=== PATIENT | male | born 1990 | race Caucasian/White ===

== ENCOUNTER 2017-07-03 02:32 | Emergency (ER) | payer MEDICAID ==
[2017-07-03 02:42] VITALS: BP 160/81
[2017-07-03] MEDS ORDERED: Morphine 10 MG/ML Syringe IM ONE (02:48)
[2017-07-03] MEDS ORDERED: Cyclobenzaprine 10 MG Tab PO ONE (02:50)
[2017-07-03] MEDS ORDERED: Ketorolac 10 MG Tab PO ONE (02:50)
--- NOTE | 2017-07-03 04:34 | ER ---
DATE SEEN: 07/03/2017 CHIEF COMPLAINT: Back pain. HISTORY OF PRESENT ILLNESS: This is a 26-year-old male with sudden onset of back pain earlier today. He was eating at a local restaurant, pitched for a saucer, and felt sudden onset of pain in the lower back with no radiation, almost dropped him to the ground. He has tried rubbing muscle relaxant cream. He has tried some Tylenol from [employer] with no improvement. REVIEW OF SYSTEMS: No urinary symptoms, no weakness of the legs, no fever. ALLERGIES: None. PHYSICAL EXAMINATION: VITAL SIGNS: He is a morbidly obese male with a blood pressure 160/81, temperature 98.1. LOW BACK: No obvious swelling or deformity. There is tenderness in the sacral spine in the paraspinal muscles around that region. Gait: Normal gait and station. Straight leg raising test negative. NEUROLOGIC: Brisk and symmetric deep tendon reflexes. No weakness or focal findings. LABORATORY DATA: None. IMPRESSION: Lumbar sprain. PLAN: Morphine 10 mg IM. I sent him home on ketorolac and Flexeril. /[id number] TN/MODL
== END 2017-07-03 03:00 | disposition home or self-care (01) ==
LOC: FB.ED 02:32
DX: S33.5XXA Sprain of ligaments of lumbar spine, initial encounter (principal); X50.0XXA Overexertion from strenuous movement or load, initial encounter
CPT/HCPCS: 96372; 99282; A9270; J2270

== ENCOUNTER 2017-09-16 03:48 | Emergency (ER) | payer OTHER, MEDICAID ==
[2017-09-16] MEDS ORDERED: Ketorolac 60 MG/2 ML SDV IM ONE (04:06)
[2017-09-16] MEDS ORDERED: Acetaminophen/Codeine 300-30 MG Tab PO ONE (04:17)
[2017-09-16 05:42] VITALS: BP 147/70
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
== END 2017-09-16 05:15 | disposition home or self-care (01) ==
LOC: FB.ED 03:48
DX: M25.512 Pain in left shoulder (principal); R10.9 Unspecified abdominal pain
CPT/HCPCS: 96372; 99283; A9270; J1885

== ENCOUNTER 2018-01-18 02:47 | Emergency (ER) | payer MEDICAID ==
--- NOTE | 2018-01-18 04:08 | ER ---
DATE SEEN: 01/18/2018 CHIEF COMPLAINT: Shoulder pain. HISTORY OF PRESENT ILLNESS: This is a 27-year-old male with shoulder pain for 3 days with no trauma. Worse when he tries to raise the arm above the shoulder level, moderate in intensity, nothing is helping. PAST MEDICAL HISTORY: Obesity, hypertension, depression. SOCIAL HISTORY: Noncontributory. REVIEW OF SYSTEMS: No chest pain or shortness of breath. PHYSICAL EXAMINATION: VITAL SIGNS: Blood pressure 157/87, temperature 98.1. GENERAL: He is not in distress. EXTREMITIES: Right shoulder, no obvious signs of trauma, tenderness anteriorly, and around the AC joint. Normal strength. Full active range of motion, passive range of motion and a positive impingement sign. DIAGNOSTIC DATA: X-ray was negative. IMPRESSION: Rotator cuff tendinitis, right. PLAN: Toradol 10 mg t.i.d. p.r.n. Rest, ice to the area. FOLLOWUP: I advised him to follow up on Sunday. Consider physical therapy. Time seen was 03:45 a.m. /[id number] LYLE/VINCENZO
[2018-01-18 04:42] VITALS: BP 141/77
--- NOTE | 2018-01-18 11:08 | CR ---
INDICATION: Pain. No history of trauma. RIGHT SHOULDER: Three views of the right shoulder were obtained 01/18/2018 - no comparisons. A fracture, dislocation, or other significant bone or joint abnormality was not identified. If symptoms persist, examination such as MRI may be helpful for further evaluation. JULIA
== END 2018-01-18 04:02 | disposition home or self-care (01) ==
LOC: FB.ED 02:47
DX: M75.101 Unspecified rotator cuff tear or rupture of right shoulder, not specified as traumatic (principal); E66.9 Obesity, unspecified; I10 Essential (primary) hypertension
CPT/HCPCS: 73030-RT; 99283

== ENCOUNTER 2018-03-26 07:49 | Emergency (ER) | payer MEDICAID ==
[2018-03-26 08:00] VITALS: BP 152/60
[2018-03-26] MEDS ORDERED: Acetaminophen 325 MG Tab PO ONE (08:12)
--- NOTE | 2018-03-26 08:16 | EDM.PDOC ---
ED HPI GENERAL MEDICAL PROBLEM - General Chief Complaint: Allergic Reaction Stated Complaint: BEE BITE Time Seen by Provider: 03/26/18 07:56 Source of Information: Reports: Patient History Limitations: Reports: No Limitations - History of Present Illness INITIAL COMMENTS - FREE TEXT/NARRATIVE: 27 y.o.w.stacy came to the ed after he woke up this am with a rash at his left ant chest wall.No F/C no N/V or any other acute medical issues. BP: 152/60 RR 18 Pulse 89 O2 sat 98% on RA Temp 36.4 Onset Date: 03/25/18 Onset Time: 10:00 Duration: Day(s):, Getting Worse Location: Reports: Chest (wall) Quality: Reports: Burning, Dull Severity: Moderate Improves with: Reports: Cold Therapy Worsens with: Reports: Movement Context: Reports: Other (bit by a bug) Associated Symptoms: Reports: No Other Symptoms, Other (H/O asthma) L lat chest/rib Pain Score (Numeric/FACES): 0 - Related Data Allergies Allergy/AdvReac Type Severity Reaction Status Date / Time No Known Allergies Allergy Verified 03/26/18 08:01 Home Meds: Home Meds FLUoxetine [PROzac] 30 mg PO BEDTIME 10/07/16 [History] Lisinopril 10 mg PO DAILY 07/03/17 [History] Montelukast [Singulair] 10 mg PO BEDTIME 01/18/18 [History] buPROPion [Wellbutrin] 75 mg DAILY 01/18/18 [History] hydrOXYzine HCl [hydrOXYzine] 50 mg BID PRN 01/18/18 [History] Albuterol [Proventil HFA] 2 puff INH Q4H PRN 03/26/18 [History] Doxycycline [Vibramycin] 100 mg PO BID #20 cap 03/26/18 [Rx] Past Medical History HEENT History: Reports: Impaired Vision Cardiovascular History: Reports: High Cholesterol, Hypertension Respiratory History: Reports: Asthma, Bronchitis, Recurrent, Sleep Apnea Other Respiratory History: uses CPAP Gastrointestinal History: Reports: GERD Genitourinary History: Reports: None Musculoskeletal History: Reports: Fracture, Neck Pain, Chronic, Other (See Below ) Other Musculoskeletal History: L FOOT FRACTURE, hx R boxer's fx x 3, DJD of neck Neurological History: Reports: Migraines Psychiatric History: Reports: ADHD, Anxiety, Bipolar, Depression, Other (See Below) Other Psychiatric History: anger management problems Endocrine/Metabolic History: Reports: Obesity/BMI 30+ Hematologic History: Reports: None Immunologic History: Reports: None Oncologic (Cancer) History: Reports: None Dermatologic History: Reports: None - Infectious Disease History Infectious Disease History: Reports: Chicken Pox - Past Surgical History Head Surgeries/Procedures: Reports: None HEENT Surgical History: Reports: Myringotomy w Tube(s), Oral Surgery Other HEENT Surgeries/Procedures: tubes in L ear GI Surgical History: Reports: None Male Surgical History: Reports: None Endocrine Surgical History: Reports: None Neurological Surgical History: Reports: None Social & Family History - Family History Family Medical History: Noncontributory - Caffeine Use Caffeine Use: Reports: Coffee, Energy Drinks, Soda, Tea ED ROS ALLERGIC REACTION - Review of Systems Review Of Systems: See Below Constitutional: Reports: No Symptoms HEENT: Reports: No Symptoms Respiratory: Reports: No Symptoms Cardiovascular: Reports: No Symptoms Endocrine: Reports: No Symptoms GI/Abdominal: Reports: No Symptoms : Reports: No Symptoms Musculoskeletal: Reports: No Symptoms Skin: Reports: Rash, Erythema (left ant chest wall.) Neurological: Reports: No Symptoms Psychiatric: Reports: No Symptoms Hematologic/Lymphatic: Reports: No Symptoms Immunologic: Reports: No Symptoms ED EXAM GENERAL NO PERIP PULSE - Physical Exam Exam: See Below Exam Limited By: No Limitations General Appearance: Alert, WD/WN, Mild Distress, Obese (morbid) Eye Exam: Bilateral Eye: Normal Inspection Ears: Normal External Exam, Normal Canal Nose: Normal Inspection, Normal Mucosa, No Blood Throat/Mouth: Normal Inspection, Normal Lips, Normal Gums, Normal Voice, No Airway Compromise Head: Atraumatic, Normocephalic Neck: Normal Inspection, Supple, Non-Tender, Full Range of Motion Respiratory/Chest: No Respiratory Distress, Lungs Clear, Normal Breath Sounds, No Accessory Muscle Use, Chest Non-Tender Cardiovascular: Normal Peripheral Pulses, Regular Rate, Rhythm, No Edema, No Gallop, No JVD, No Murmur, No Rub GI/Abdominal: Normal Bowel Sounds, Soft, Non-Tender, No Organomegaly, No Distention, No Abnormal Bruit, No Mass, Pelvis Stable (Male) Exam: Deferred Rectal (Males) Exam: Deferred Back Exam: Normal Inspection, Full Range of Motion Extremities: Normal Inspection, Normal Range of Motion, Non-Tender, No Pedal Edema Neurological: Alert, Oriented, CN II-XII Intact, Normal Cognition, Normal Gait, Normal Reflexes Psychiatric: Normal Affect, Normal Mood Skin Exam: Warm, Dry, Erythema (left ant chest wall), Rash Lymphatic: No Adenopathy Course - Vital Signs Text/Narrative:: 27 y.o.w.m came to the ed after he woke up this am with a rash at his left ant chest wall.No F/C no N/V or any other acute medical issues. BP: 152/60 RR 18 Pulse 89 O2 sat 98% on RA Temp 36.4 PE: 27 y.o.w.m came to the ed after he was bit by a bug into his left chest wall , port of entry above his left nipple. No stinger seen. Impression: Insect bite with superficial cellulites left ant chest wall. Tx: Doxycycline as per prescription, Tylenol, ICE Reexam: Improved Plan: D/C with instructions Last Recorded V/S: Last Vital Signs Temp 36.7 C 03/26/18 07:56 Pulse 89 03/26/18 07:56 Resp 20 03/26/18 07:56 BP 152/60 H 03/26/18 07:56 Pulse Ox 98 03/26/18 07:56 - Orders/Labs/Meds Meds: Medications Discontinued Medications Generic Name Dose Route Start Last Admin Trade Name Carlitosq PRN Reason Stop Dose Admin Acetaminophen 650 mg 03/26/18 08:12 03/26/18 08:41 Tylenol PO 03/26/18 08:13 650 mg NOW ONE Administration Departure - Departure Time of Disposition: 08:13 Disposition: Home, Self-Care 01 Condition: Good Clinical Impression: Bug bite with infection Qualifiers: Encounter type: initial encounter Qualified Code(s): W57.XXXA - Bitten or stung by nonvenomous insect and other nonvenomous arthropods, initial encounter - Discharge Information Prescriptions: Doxycycline [Vibramycin] 100 mg PO BID #20 cap Instructions: Cellulitis, Adult, Vaes-yd-Angh, Bee, Wasp, or Hornet Sting, Adult Referrals: Prashant Crisostomo MD [Primary Care Provider] - Forms: ED Department Discharge Additional Instructions: Please apply ice to the affected area, please take the Abx as recommended, tylenol for pain, ice to the affected area as needed. Please f/u, come back if your symptoms get worse acutely.
== END 2018-03-26 08:37 | disposition home or self-care (01) ==
LOC: FB.ED 07:49
DX: S20.362A Insect bite (nonvenomous) of left front wall of thorax, initial encounter (principal); L03.313 Cellulitis of chest wall; E66.9 Obesity, unspecified; I10 Essential (primary) hypertension; Z79.899 Other long term (current) drug therapy; W57.XXXA Bitten or stung by nonvenomous insect and other nonvenomous arthropods, initial encounter
CPT/HCPCS: 99281; A9270

== ENCOUNTER 2018-04-14 19:00 | Emergency (ER) | payer OTHER, MEDICAID ==
[2018-04-14 23:55] VITALS: BP 153/72
--- NOTE | 2018-04-15 10:51 | ER ---
DATE SEEN: 04/14/2018 TIME SEEN: The patient was seen at 1427 hours. 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 He has moderate 8/10 pain and discomfort of his right shoulder. He has used ibuprofen at 10 o'clock. He has decreased range of motion, no compromised sensation. CURRENT MEDICATIONS: He takes: 1. Lisinopril 10 mg. 2. Albuterol p.r.n. shortness of breath. ALLERGIES: None. REVIEW OF SYSTEMS: Negative, except for extensive morbid obesity. PHYSICAL EXAMINATION: VITAL SIGNS: Blood pressure 159/102, repeat blood pressure 153/72; heart rate 81; respirations 18; oxygen saturation 97%; and temperature 36.8 degrees centigrade. CONSTITUTIONAL: The patient is a massively obese man with marked fatty overhang with mild discomfort. He has very large arms. HEENT: PERRLA intact. Pharynx is without abnormality. LUNGS: Clear, without rales, rhonchi, or wheezes. CHEST: No chest wall pain. HEART: S1 and S2. No irregular rate or rhythm. No tachycardia. ABDOMEN: Soft. No guarding. No hepatomegaly. It is difficult to palpate his abdomen. EXTREMITIES: Without edema. Right upper extremity: moderate tenderness of the AC joint, clavicle: mild tenderness, distal third, with no crepitus or step-off noted. Anterior long head of biceps tendon groove is mildly tender. He can abduct to 90 degrees and adduct appropriately. Internal and external rotation is good, but on the end range of motion has mild discomfort. RADIOGRAPHIC DATA: X-ray does not reveal a fracture and does not reveal an AC separation. However, Radiology may need to read it for evaluating AC separation. Because of his shoulder pain I do not perform AC evaluation with and without weights to accentuate any AC separation. ASSESSMENT: Right shoulder trauma, soft tissue injury, and ligamentous and tendons trauma with AC separation. PLAN: Follow up with Orthopedics in 3 to 5 days. A work capability sheet is filled out for his work at [employer]. Plain Tylenol 1000 mg and ibuprofen 600 mg, both taken together every 6 hours for pain. Use ice. Gradually progress or increase the use of his arm. DIAGNOSIS: Right shoulder contusion with ligamentous strain, no fracture, possible acromioclavicular separation. /[id number] SIOBHAN/VINCENZO DUMONT
--- NOTE | 2018-04-15 14:50 | CR ---
INDICATION: Trauma to right shoulder, fell, 446 pounds weight. RIGHT CLAVICLE: Two frontal views of the clavicle were obtained and revealed no evidence of a fracture, dislocation, or other definite bone or joint abnormality. Adjacent ribs appear to be intact. MTDD
--- NOTE | 2018-04-15 14:51 | CR ---
INDICATION: Fall yesterday. RIGHT SHOULDER: Three views of the right shoulder were obtained 04/14/2018. No comparisons were available. A fracture, dislocation, or other definite bone or joint abnormality was not identified. Adjacent ribs appear to be intact. MTDD
== END 2018-04-14 21:30 | disposition home or self-care (01) ==
LOC: FB.ED 19:00
DX: S40.011A Contusion of right shoulder, initial encounter (principal); W01.0XXA Fall on same level from slipping, tripping and stumbling without subsequent striking against object, initial encounter
CPT/HCPCS: 73000-RT; 73030-RT; 99000; 99283

== ENCOUNTER 2018-05-14 14:12 | Emergency (ER) | payer MEDICAID, OTHER ==
[2018-05-14] MEDS ORDERED: Sodium Chloride 0.9% 10 ML Syringe FLUSH PRN (14:57)
[2018-05-14] MEDS ORDERED: Pantoprazole 40 MG Vial IVPUSH ONE (14:58)
[2018-05-14] MEDS ORDERED: Ondansetron 4 MG/2 ML SDV IVPUSH ONE (14:58)
[2018-05-14] MEDS ORDERED: HYDROmorphone 2 MG/ML SDV IVPUSH ONE (14:58)
[2018-05-14] MEDS ORDERED: Sodium Chloride 0.9% 1,000 ML IV SCH (15:00)
--- NOTE | 2018-05-14 15:03 | EDM.PDOC ---
ED HPI GENERAL MEDICAL PROBLEM - General Chief Complaint: Abdominal Pain Stated Complaint: STOMACH PAIN Time Seen by Provider: 05/14/18 14:58 Source of Information: Reports: Patient History Limitations: Reports: No Limitations - History of Present Illness INITIAL COMMENTS - FREE TEXT/NARRATIVE: Presents with generalized abdominal pain and nausea x 2 days. No prior h/o abdominal surgeries. Patient believes he may be constipated, doesn't remember when his last BM was. Onset Date: 05/13/18 Location: Reports: Abdomen Severity: Moderate Associated Symptoms: Reports: Nausea/Vomiting - Related Data Allergies Allergy/AdvReac Type Severity Reaction Status Date / Time No Known Allergies Allergy Verified 04/14/18 19:21 Home Meds: Home Meds Lisinopril 10 mg PO DAILY 07/03/17 [History] Albuterol [Proventil HFA] 2 puff INH Q4H PRN 03/26/18 [History] FLUoxetine [PROzac] 10 mg PO DAILY 05/14/18 [History] Loratadine 10 mg PO DAILY 05/14/18 [History] Montelukast [Singulair] 10 mg PO DAILY 05/14/18 [History] Topiramate 100 mg PO DAILY 05/14/18 [History] buPROPion [Wellbutrin] 75 mg PO BEDTIME 05/14/18 [History] Past Medical History HEENT History: Reports: Impaired Vision Cardiovascular History: Reports: High Cholesterol, Hypertension Respiratory History: Reports: Asthma, Bronchitis, Recurrent, Sleep Apnea Other Respiratory History: uses CPAP Gastrointestinal History: Reports: GERD Genitourinary History: Reports: None Musculoskeletal History: Reports: Fracture, Neck Pain, Chronic, Other (See Below ) Other Musculoskeletal History: L FOOT FRACTURE, hx R boxer's fx x 3, DJD of neck Neurological History: Reports: Migraines Psychiatric History: Reports: ADHD, Anxiety, Bipolar, Depression, Other (See Below) Other Psychiatric History: anger management problems Endocrine/Metabolic History: Reports: Obesity/BMI 30+ Hematologic History: Reports: None Immunologic History: Reports: None Oncologic (Cancer) History: Reports: None Dermatologic History: Reports: None - Infectious Disease History Infectious Disease History: Reports: Chicken Pox - Past Surgical History Head Surgeries/Procedures: Reports: None HEENT Surgical History: Reports: Myringotomy w Tube(s), Oral Surgery Other HEENT Surgeries/Procedures: tubes in L ear GI Surgical History: Reports: None Male Surgical History: Reports: None Endocrine Surgical History: Reports: None Neurological Surgical History: Reports: None Social & Family History - Family History Family Medical History: Noncontributory - Tobacco Use Smoking Status *Q: Heavy Tobacco Smoker Years of Tobacco use: 8 Packs/Tins Daily: 1.5 Second Hand Smoke Exposure: Yes - Caffeine Use Caffeine Use: Reports: Coffee - Recreational Drug Use Recreational Drug Use: No ED ROS GENERAL - Review of Systems Review Of Systems: See Below Constitutional: Reports: No Symptoms HEENT: Reports: No Symptoms Respiratory: Reports: No Symptoms Cardiovascular: Reports: No Symptoms Endocrine: Reports: No Symptoms GI/Abdominal: Reports: Abdominal Pain, Nausea. Denies: Vomiting : Reports: No Symptoms Musculoskeletal: Reports: No Symptoms Skin: Reports: No Symptoms Neurological: Reports: No Symptoms Psychiatric: Reports: No Symptoms Hematologic/Lymphatic: Reports: No Symptoms Immunologic: Reports: No Symptoms ED EXAM, GI/ABD - Physical Exam Exam: See Below Exam Limited By: No Limitations General Appearance: Alert, WD/WN, No Apparent Distress Ears: Normal External Exam Nose: Normal Inspection Throat/Mouth: No Airway Compromise Head: Atraumatic, Normocephalic Neck: Full Range of Motion Respiratory/Chest: No Respiratory Distress, Lungs Clear, Normal Breath Sounds Cardiovascular: Regular Rate, Rhythm, No JVD, No Murmur, No Rub GI/Abdominal Exam: Normal Bowel Sounds, Soft, Guarding, Tender (moderate generalized tenderness) Back Exam: Full Range of Motion Extremities: Normal Range of Motion Neurological: Alert, Normal Cognition Skin Exam: Warm, Dry, Intact Course - Vital Signs Last Recorded V/S: Last Vital Signs Temp 37.0 C 05/14/18 14:27 Pulse 95 05/14/18 15:33 Resp 15 05/14/18 15:33 BP 132/79 05/14/18 15:33 Pulse Ox 97 05/14/18 15:33 - Orders/Labs/Meds Orders: Active Orders 24 hr Category Date Time Status UA W/MICROSCOPIC [URIN] Stat Lab 05/14/18 16:54 Ordered Sodium Chloride 0.9% [Normal Saline] 1,000 ml Med 05/14/18 15:00 Active IV ASDIRECTED Sodium Chloride 0.9% [Saline Flush] Med 05/14/18 14:57 Active 10 ml FLUSH ASDIRECTED PRN Saline Lock Insert [OM.PC] Routine Oth 05/14/18 14:57 Ordered Medication Orders Sodium Chloride (Normal Saline) 1,000 mls @ 150 mls/hr IV ASDIRECTED ALICIA Last Admin: 05/14/18 15:27 Dose: 150 mls/hr Sodium Chloride (Saline Flush) 10 ml FLUSH ASDIRECTED PRN PRN Reason: Keep Vein Open Labs: Laboratory Tests 05/14/18 05/14/18 05/14/18 Range/Units 15:23 15:23 15:23 WBC 19.0 H (4.5-12.0) X10-3/uL RBC 5.42 (4.30-5.75) x10(6)uL Hgb 12.8 (11.5-15.5) g/dL Hct 39.9 (30.0-51.3) % MCV 73.7 L (80-96) fL MCH 23.7 L (27.7-33.6) pg MCHC 32.1 L (32.2-35.4) g/dL RDW 15.5 (11.5-15.5) % Plt Count 340 (125-369) X10(3)uL MPV 8.3 (7.4-10.4) fL Add Manual Diff Yes Neutrophils % (Manual) 74 (46-82) % Band Neutrophils % 4 (0-6) % Lymphocytes % (Manual) 13 (13-37) % Monocytes % (Manual) 9 (4-12) % Anisocytosis Moderate H Microcytosis Many H PT 10.6 (8.7-11.1) INR 1.09 (0.89-1.13) Sodium 136 (135-145) mmol/L Potassium 3.6 (3.5-5.3) mmol/L Chloride 100 (100-110) mmol/L Carbon Dioxide 26 (21-32) mmol/L BUN 10 (7-18) mg/dL Creatinine 0.9 (0.70-1.30) mg/dL Est Cr Clr Drug Dosing 130.15 mL/min Estimated GFR (MDRD) > 60 (>60) BUN/Creatinine Ratio 11.1 (9-20) Glucose 97 (80-116) mg/dL Calcium 9.3 (8.6-10.2) mg/dL Total Bilirubin 1.0 (0.1-1.3) mg/dL AST 12 (5-25) IU/L ALT 26 (12-36) U/L Alkaline Phosphatase 69 (56-112) IU/L Total Protein 8.2 H (6.0-8.0) g/dL Albumin 3.2 L (3.5-5.2) g/dL Globulin 5.0 g/dL Albumin/Globulin Ratio 0.6 Amylase 27 (25-115) U/L Urine Color (YELLOW) Urine Appearance (CLEAR) Urine pH (5.0-6.5) Ur Specific [place] (1.010-1.025) Urine Protein (NEGATIVE) mg/dL Urine Glucose (UA) (NEGATIVE) mg/dL Urine Ketones (NEGATIVE) mg/dL Urine Occult Blood (NEGATIVE) Urine Nitrite (NEGATIVE) Urine Bilirubin (NEGATIVE) Urine Urobilinogen (NEGATIVE) mg/dL Ur Leukocyte Esterase (NEGATIVE) Urine RBC (0) Urine WBC (0) Ur Squamous Epith Cells (NS,R,O) Urine Bacteria (NS) Urine Mucus (NS) 05/14/18 Range/Units 16:54 WBC (4.5-12.0) X10-3/uL RBC (4.30-5.75) x10(6)uL Hgb (11.5-15.5) g/dL Hct (30.0-51.3) % MCV (80-96) fL MCH (27.7-33.6) pg MCHC (32.2-35.4) g/dL RDW (11.5-15.5) % Plt Count (125-369) X10(3)uL MPV (7.4-10.4) fL Add Manual Diff Neutrophils % (Manual) (46-82) % Band Neutrophils % (0-6) % Lymphocytes % (Manual) (13-37) % Monocytes % (Manual) (4-12) % Anisocytosis Microcytosis PT (8.7-11.1) INR (0.89-1.13) Sodium (135-145) mmol/L Potassium (3.5-5.3) mmol/L Chloride (100-110) mmol/L Carbon Dioxide (21-32) mmol/L BUN (7-18) mg/dL Creatinine (0.70-1.30) mg/dL Est Cr Clr Drug Dosing mL/min Estimated GFR (MDRD) (>60) BUN/Creatinine Ratio (9-20) Glucose (80-116) mg/dL Calcium (8.6-10.2) mg/dL Total Bilirubin (0.1-1.3) mg/dL AST (5-25) IU/L ALT (12-36) U/L Alkaline Phosphatase (56-112) IU/L Total Protein (6.0-8.0) g/dL Albumin (3.5-5.2) g/dL Globulin g/dL Albumin/Globulin Ratio Amylase (25-115) U/L Urine Color [place] (YELLOW) Urine Appearance Slightly cloudy (CLEAR) Urine pH 5.0 (5.0-6.5) Ur Specific [place] 1.015 (1.010-1.025) Urine Protein Trace (NEGATIVE) mg/dL Urine Glucose (UA) Normal (NEGATIVE) mg/dL Urine Ketones Negative (NEGATIVE) mg/dL Urine Occult Blood Trace (NEGATIVE) Urine Nitrite Negative (NEGATIVE) Urine Bilirubin Small H (NEGATIVE) Urine Urobilinogen Normal (NEGATIVE) mg/dL Ur Leukocyte Esterase Negative (NEGATIVE) Urine RBC 0-5 (0) Urine WBC 0-5 (0) Ur Squamous Epith Cells Moderate H (NS,R,O) Urine Bacteria Moderate H (NS) Urine Mucus Few H (NS) Meds: Medications Generic Name Dose Route Start Last Admin Trade Name Freq PRN Reason Stop Dose Admin Sodium Chloride 1,000 mls @ 150 mls/hr 05/14/18 15:00 05/14/18 15:27 Normal Saline IV 150 mls/hr ASDIRECTED ALICIA Administration Sodium Chloride 10 ml 05/14/18 14:57 Saline Flush FLUSH ASDIRECTED PRN Keep Vein Open Discontinued Medications Generic Name Dose Route Start Last Admin Trade Name Freq PRN Reason Stop Dose Admin Hydromorphone HCl 1 mg 05/14/18 14:58 05/14/18 15:28 Dilaudid IVPUSH 05/14/18 14:59 1 mg ONETIME ONE Administration Piperacillin Sod/Tazobactam 50 mls @ 100 mls/hr 05/14/18 16:54 Sod 3.375 gm/ Sodium Chloride IV 05/14/18 17:23 ONETIME ONE Iopamidol 150 ml 05/14/18 16:32 05/14/18 16:37 Isovue-370 (76%) IV 05/14/18 16:33 150 ml ONETIME ONE Administration Ondansetron HCl 4 mg 05/14/18 14:58 05/14/18 15:28 Zofran IVPUSH 05/14/18 14:59 4 mg ONETIME ONE Administration Pantoprazole Sodium 40 mg 05/14/18 14:58 05/14/18 15:30 Protonix Iv IVPUSH 05/14/18 14:59 40 mg ONETIME ONE Administration - Radiology Interpretation Free Text/Narrative:: CT Abd/Pelvis w/ contrast: Findings compatible with peritonitis with possibility of either perforation of bowel and tiny amounts of free air or possibly gas forming organism infection with peritonitis. Adjacent loops of bowel are present, raising question of either diverticulitis or colitis with perforation. Distended gallbladder is noted. - Re-Assessments/Exams Free Text/Narrative Re-Assessment/Exam: 05/14/18 18:15 Pain and nausea have improved. 05/14/18 19:16 Dr. Lopez (sort operations supervisor surgeon for [facility]) recommends [facility] transfer due to morbid obesity. Dr. Hodges accepts patient for transfer to [facility] ED. Departure - Departure Time of Disposition: 19:15 Disposition: DC/Tfer to Acute Hospital 02 Condition: Fair Clinical Impression: Peritonitis, Perforation of cecum due to diverticulitis - Discharge Information *PRESCRIPTION DRUG MONITORING PROGRAM REVIEWED*: No *COPY OF PRESCRIPTION DRUG MONITORING REPORT IN PATIENT BERONICA: Not Applicable Referrals: Prashant Crisostomo MD [Primary Care Provider] - Forms: ED Department Discharge - My Orders Last 24 Hours: My Active Orders 05/14/18 14:57 Sodium Chloride 0.9% [Saline Flush] 10 ml FLUSH ASDIRECTED PRN Saline Lock Insert [OM.PC] Routine 05/14/18 15:00 Sodium Chloride 0.9% [Normal Saline] 1,000 ml IV ASDIRECTED 05/14/18 16:54 UA W/MICROSCOPIC [URIN] Stat - Assessment/Plan Last 24 Hours: My Active Orders 05/14/18 14:57 Sodium Chloride 0.9% [Saline Flush] 10 ml FLUSH ASDIRECTED PRN Saline Lock Insert [OM.PC] Routine 05/14/18 15:00 Sodium Chloride 0.9% [Normal Saline] 1,000 ml IV ASDIRECTED 05/14/18 16:54 UA W/MICROSCOPIC [URIN] Stat
[2018-05-14] MEDS ORDERED: Iopamidol 755 MG/ML 150 ML Bottle IV ONE (16:32)
[2018-05-14] MEDS ORDERED: Piperacillin/Tazobactam 3.375 GM in Sodium Chloride 0.9% 50 ML IV ONE (16:54)
--- NOTE | 2018-05-14 18:08 | CT ---
INDICATION: Pelvic pain mid to left pelvis. CT ABDOMEN AND PELVIS WITH CONTRAST: Spiral 1.25 mm axial sections were obtained through the abdomen and pelvis with 150 mL Isovue 370 at 2 mL/second with 100 second delay and revealed, in the upper middle anterior pelvis to the left and in the midline, an area of fairly intense fat stranding with a few gas bubbles interspersed, strongly suggesting peritonitis. Adjacent bowel loops are noted, and the possibility of either diverticulitis or colitis with perforation would be a consideration, possibly with gas-forming organism infection also. No definite abscess formation was seen. No gross free fluid collection was seen - no gross free air was seen extending to the anterior abdominal wall. Total exam DLP = 2,017.11 mGy-cm. No evidence of bowel obstruction was identified. The appendix was not definitely seen. The gallbladder appears to be somewhat distended - no definite calculi were seen. The gallbladder was fairly large; however, this is a large patient, and it may be physiologic for this specific patient. If gallbladder disease is suspected clinically, gallbladder ultrasound is recommended for further evaluation. The lower lung ulloa and pleural spaces visualized showed no evidence of active infiltrate or effusion. The liver, spleen, pancreas, adrenals, and kidneys appeared normal. No retroperitoneal masses were seen. No organomegaly, mass lesions, or free fluid collections were identified in the abdomen or pelvis. The study is somewhat limited by the patients exogenous obesity, which diminishes detail. IMPRESSION: 1. Findings are compatible with peritonitis with possibility of either perforation of bowel and tiny amounts of free air in the area of peritonitis or possibly gas-forming organism infection with peritonitis, producing the bubbles of gas. Adjacent loops of bowel are present, raising question of either minimal diverticulosis with diverticulitis or colitis possibly with perforation. 2. Distended gallbladder is noted, which likely is physiologic, but cannot entirely exclude the possibility of cholecystitis with a 12 cm gallbladder. Depending upon clinical correlation, ultrasound of the gallbladder may be helpful for further evaluation. 3. CT of the abdomen and pelvis is otherwise fairly unremarkable. Report was called to Dr. Sarmiento at 1656 hours on 05/14/2018. [facility]
[2018-05-14 23:11] VITALS: BP 149/91
== END 2018-05-14 19:30 ==
LOC: FB.ED 14:12
DX: K57.20 Diverticulitis of large intestine with perforation and abscess without bleeding (principal); K21.9 Gastro-esophageal reflux disease without esophagitis; F17.210 Nicotine dependence, cigarettes, uncomplicated; Z79.899 Other long term (current) drug therapy
CPT/HCPCS: 36415; 74177; 80053; 81001; 82150; 85025; 85610; 96361; 96374; 96375; 99285; C9113; J1170; J2405; J2543; J7030; J7050; Q9967

== ENCOUNTER 2018-07-15 04:33 | Emergency (ER) | payer MEDICAID, OTHER ==
--- NOTE | 2018-07-15 06:21 | EDM.PDOC ---
ED HPI GENERAL MEDICAL PROBLEM - General Chief Complaint: Upper Extremity Injury/Pain Stated Complaint: RIGHT WRIST PAIN Time Seen by Provider: 07/15/18 06:16 Source of Information: Reports: Patient History Limitations: Reports: No Limitations - History of Present Illness INITIAL COMMENTS - FREE TEXT/NARRATIVE: Complains of right wrist pain x 1 week. Denies injury. Taking Ibuprofen w/o improvement. Patient is right hand dominant. 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 2 Pain Score (Numeric/FACES): 7 - Related Data Allergies Allergy/AdvReac Type Severity Reaction Status Date / Time No Known Allergies Allergy Verified 07/15/18 05:11 Home Meds: Home Meds Lisinopril 10 mg PO DAILY 07/03/17 [History] Albuterol [Proventil HFA] 2 puff INH Q4H PRN 03/26/18 [History] FLUoxetine [PROzac] 10 mg PO DAILY 05/14/18 [History] Loratadine 10 mg PO DAILY 05/14/18 [History] Montelukast [Singulair] 10 mg PO DAILY 05/14/18 [History] Topiramate 100 mg PO DAILY 05/14/18 [History] buPROPion [Wellbutrin] 75 mg PO BEDTIME 05/14/18 [History] Past Medical History HEENT History: Reports: Impaired Vision Cardiovascular History: Reports: High Cholesterol, Hypertension Respiratory History: Reports: Asthma, Bronchitis, Recurrent, Sleep Apnea Other Respiratory History: uses CPAP Gastrointestinal History: Reports: GERD, Other (See Below) Other Gastrointestinal History: diverticulitis Genitourinary History: Reports: None Musculoskeletal History: Reports: Fracture, Neck Pain, Chronic, Other (See Below ) Other Musculoskeletal History: L FOOT FRACTURE, hx R boxer's fx x 3, DJD of neck ,should injury Neurological History: Reports: Migraines Psychiatric History: Reports: ADHD, Anxiety, Bipolar, Depression, Other (See Below) Other Psychiatric History: anger management problems Endocrine/Metabolic History: Reports: Obesity/BMI 30+ Hematologic History: Reports: None Immunologic History: Reports: None Oncologic (Cancer) History: Reports: None Dermatologic History: Reports: None - Infectious Disease History Infectious Disease History: Reports: Chicken Pox - Past Surgical History HEENT Surgical History: Reports: Myringotomy w Tube(s), Oral Surgery Other HEENT Surgeries/Procedures: tubes in L ear GI Surgical History: Reports: None Male Surgical History: Reports: None Endocrine Surgical History: Reports: None Neurological Surgical History: Reports: None Musculoskeletal Surgical History: Reports: Other (See Below) Other Musculoskeletal Surgeries/Procedures:: back surgery Social & Family History - Family History Family Medical History: Noncontributory - Tobacco Use Smoking Status *Q: Current Every Day Smoker Years of Tobacco use: 10 Packs/Tins Daily: 3 - Caffeine Use Caffeine Use: Reports: Coffee, Energy Drinks - Recreational Drug Use Recreational Drug Use: No Review of Systems - Review of Systems Review Of Systems: ROS reveals no pertinent complaints other than HPI. ED EXAM, GENERAL - Physical Exam Exam: See Below Exam Limited By: No Limitations General Appearance: Alert, WD/WN, No Apparent Distress Ears: Normal External Exam Throat/Mouth: No Airway Compromise Head: Atraumatic, Normocephalic Neck: Full Range of Motion Respiratory/Chest: No Respiratory Distress Peripheral Pulses: 2+: Radial (R) Extremities: Normal Range of Motion, Normal Capillary Refill, Other (mild tenderness to right lateral wrist) Neurological: Alert, Normal Cognition, No Motor/Sensory Deficits Psychiatric: Normal Affect, Normal Mood Skin Exam: Warm, Dry, Intact, Normal Color, No Rash ED TRAUMA EXTREMITY PROCEDURES - Splinting Right Upper Extremity Splint Site: right wrist Pre-Procedure NV Status: Normal Post-Procedure NV Status: Normal Splint Material: Velcro Splint Design: Volar Applied & Form Fitted By: Nurse Provider Post-Splint Application NV Check: NV Status Normal, Good Position Complications: No Course - Vital Signs Last Recorded V/S: Last Vital Signs Temp 37.1 C 07/15/18 05:00 Pulse Resp 18 07/15/18 05:00 BP 132/89 07/15/18 05:00 Pulse Ox 99 07/15/18 05:00 - Orders/Labs/Meds Orders: Active Orders 24 hr Category Date Time Status Splinting [RC] ASDIRECTED Care 07/15/18 06:16 Ordered Wrist Comp Min 3V Rt [CR] Stat Exams 07/15/18 05:07 Taken - Re-Assessments/Exams Free Text/Narrative Re-Assessment/Exam: 09/17/18 06:19 Right wrist xr: NAD Departure - Departure Time of Disposition: 06:20 Disposition: Home, Self-Care 01 Condition: Good Clinical Impression: Wrist pain, acute Qualifiers: Laterality: right Qualified Code(s): M25.531 - Pain in right wrist - Discharge Information *PRESCRIPTION DRUG MONITORING PROGRAM REVIEWED*: No *COPY OF PRESCRIPTION DRUG MONITORING REPORT IN PATIENT BERONICA: Not Applicable Instructions: Wrist Splint, Adult, Musculoskeletal Pain Referrals: Prashant Crisostomo MD [Primary Care Provider] - Aníbal Sheikh DO [Physician] - Additional Instructions: Take Ibuprofen as needed. Follow up with orthopedics in 3-4 days. - My Orders Last 24 Hours: My Active Orders 07/15/18 05:07 Wrist Comp Min 3V Rt [CR] Stat 07/15/18 06:16 Splinting [RC] ASDIRECTED - Assessment/Plan Last 24 Hours: My Active Orders 07/15/18 05:07 Wrist Comp Min 3V Rt [CR] Stat 07/15/18 06:16 Splinting [RC] ASDIRECTED
[2018-07-15 06:36] VITALS: BP 133/83
== END 2018-07-15 06:32 | disposition home or self-care (01) ==
LOC: FB.ED 04:33
DX: M25.531 Pain in right wrist (principal); I10 Essential (primary) hypertension; E66.9 Obesity, unspecified; F17.210 Nicotine dependence, cigarettes, uncomplicated; Z79.899 Other long term (current) drug therapy
CPT/HCPCS: 73110-RT; 99283

== ENCOUNTER 2018-11-23 05:38 | Emergency (ER) | payer MEDICAID, OTHER ==
--- NOTE | 2018-11-23 06:15 | EDM.PDOC ---
ED HPI GENERAL MEDICAL PROBLEM - General Chief Complaint: ENT Problem Stated Complaint: EAR INFECTION Time Seen by Provider: 11/23/18 05:38 Source of Information: Reports: Patient History Limitations: Reports: No Limitations - History of Present Illness INITIAL COMMENTS - FREE TEXT/NARRATIVE: 27 y.o.w.m with a H/O HTN came to the ed because his left ear is hurting. He had an ear tube placed in his left ear and is applying cotton in his left ear to prevent drainage. He ran out of his BP meds. 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: Other (see below) (pt ran out of BP meds) right ear Pain Score (Numeric/FACES): 7 - Related Data Allergies Allergy/AdvReac Type Severity Reaction Status Date / Time No Known Allergies Allergy Verified 11/23/18 05:47 Home Meds: Home Meds Lisinopril 10 mg PO DAILY 07/03/17 [History] Albuterol [Proventil HFA] 2 puff INH Q4H PRN 03/26/18 [History] FLUoxetine [PROzac] 10 mg PO DAILY 05/14/18 [History] Loratadine 10 mg PO DAILY 05/14/18 [History] Montelukast [Singulair] 10 mg PO DAILY 05/14/18 [History] Topiramate 100 mg PO DAILY 05/14/18 [History] buPROPion [Wellbutrin] 75 mg PO BEDTIME 05/14/18 [History] Azithromycin [Zithromax] 250 mg PO DAILY #6 tab 11/23/18 [Rx] Lisinopril 10 mg PO DAILY #30 tablet 11/23/18 [Rx] Past Medical History HEENT History: Reports: Impaired Vision Cardiovascular History: Reports: High Cholesterol, Hypertension Respiratory History: Reports: Asthma, Bronchitis, Recurrent, Sleep Apnea Other Respiratory History: uses CPAP Gastrointestinal History: Reports: GERD, Other (See Below) Other Gastrointestinal History: diverticulitis Genitourinary History: Reports: None Musculoskeletal History: Reports: Arthritis, Fracture, Neck Pain, Chronic, Other (See Below) Other Musculoskeletal History: L FOOT FRACTURE, hx R boxer's fx x 3, DJD of neck , R shoulder injury Neurological History: Reports: Migraines Psychiatric History: Reports: ADHD, Anxiety, Bipolar, Depression, Other (See Below) Other Psychiatric History: anger management problems Endocrine/Metabolic History: Reports: Obesity/BMI 30+ Hematologic History: Reports: None Immunologic History: Reports: None Oncologic (Cancer) History: Reports: None Dermatologic History: Reports: None - Infectious Disease History Infectious Disease History: Reports: Chicken Pox - Past Surgical History Head Surgeries/Procedures: Reports: None HEENT Surgical History: Reports: Myringotomy w Tube(s), Oral Surgery Other HEENT Surgeries/Procedures: tubes in L ear GI Surgical History: Reports: Colonoscopy Male Surgical History: Reports: None Endocrine Surgical History: Reports: None Neurological Surgical History: Reports: None Musculoskeletal Surgical History: Reports: Other (See Below) Other Musculoskeletal Surgeries/Procedures:: back surgery Social & Family History - Family History Family Medical History: Noncontributory - Tobacco Use Smoking Status *Q: Current Every Day Smoker Years of Tobacco use: 6 Packs/Tins Daily: 1 - Caffeine Use Caffeine Use: Reports: Coffee - Recreational Drug Use Recreational Drug Use: No ED ROS ENT - Review of Systems Review Of Systems: See Below Constitutional: Reports: No Symptoms HEENT: Reports: Ear Discharge, Ear Pain Respiratory: Reports: No Symptoms Cardiovascular: Reports: No Symptoms Endocrine: Reports: No Symptoms GI/Abdominal: Reports: No Symptoms : Reports: No Symptoms Musculoskeletal: Reports: No Symptoms Skin: Reports: No Symptoms Neurological: Reports: No Symptoms Psychiatric: Reports: No Symptoms Hematologic/Lymphatic: Reports: No Symptoms Immunologic: Reports: No Symptoms ED EXAM, ENT - Physical Exam Exam: See Below Exam Limited By: No Limitations General Appearance: Alert, WD/WN, Mild Distress, Obese (morbid) Eye Exam: Bilateral Eye: Normal Inspection Ears: Normal External Exam, Canal Discharge, Canal Material, TM Bulging, TM Dullness, TM Erythema, Other (ear tube in place) Nose: Normal Inspection, Normal Mucousa, No Blood Mouth/Throat: Normal Lips, Other (poor dentition) Head: Atraumatic, Normocephalic Neck: Normal Inspection, Supple, Non-Tender Respiratory/Chest: No Respiratory Distress, Lungs Clear, Normal Breath Sounds, No Accessory Muscle Use, Chest Non-Tender Cardiovascular: Normal Peripheral Pulses, Regular Rate, Rhythm, No Edema, No Gallop, No JVD, No Murmur, No Rub GI/Abdominal: Normal Bowel Sounds, Soft, Non-Tender, No Organomegaly, No Distention, No Abnormal Bruit, No Mass, Pelvis Stable (Male) Exam: Deferred Rectal (Males) Exam: Deferred Back: Normal Inspection, Full Range of Motion Extremities: Normal Inspection, Normal Range of Motion Neurological: Alert, Oriented, CN II-XII Intact, Normal Cognition, Normal Gait Psychiatric: Normal Affect, Normal Mood Skin: Warm, Dry, Intact, Normal Color, No Rash Lymphatic: No Adenopathy Course - Vital Signs Text/Narrative:: 27 y.o.w.m with a H/O HTN came to the ed because his left ear is hurting. He had an ear tube placed in his left ear and is applying cotton in his left ear to prevent drainage. He ran out of his BP meds. No N/V/D no other acute medical issues BP 157/105 Pulse 115 RR 18 Pulse ox 100% on RA Temp 98.1 PE: Morbid obese 27 y.o.w.m with left earpain, bulging/red TM., Elevated BP Impression: Otitis media left ear, Noncompliance, HTN Tx: Prescription for ABx, Lisinopril Reexam: Pt was doing fine here in the ed BP 157/102 on D/C Plan: D/C with instructions Last Recorded V/S: Last Vital Signs Temp 36.5 C 11/23/18 05:38 Pulse 121 H 11/23/18 05:38 Resp 18 11/23/18 05:38 BP 157/105 H 11/23/18 05:38 Pulse Ox 100 11/23/18 05:38 Departure - Departure Time of Disposition: 06:09 Disposition: Home, Self-Care 01 Condition: Good Clinical Impression: Medication refill Otitis media Qualifiers: Otitis media type: suppurative Chronicity: unspecified Laterality: left Qualified Code(s): H66.42 - Suppurative otitis media, unspecified, left ear - Discharge Information Prescriptions: Azithromycin [Zithromax] 250 mg PO DAILY #6 tab Lisinopril 10 mg PO DAILY #30 tablet Instructions: Otitis Media, Adult, [id number] Referrals: Prashant Crisostmoo MD [Primary Care Provider] - Forms: ED Department Discharge Additional Instructions: Please take Tylenol/advil for pain, Zithromax Abx as recommended, please f/u with your PMD or ENT specialist, come back if your symptoms get worse acutely. Please take your BP meds as as recommended.
[2018-11-23 06:27] VITALS: BP 157/102
== END 2018-11-23 06:20 | disposition home or self-care (01) ==
LOC: FB.ED 05:38
DX: H66.42 Suppurative otitis media, unspecified, left ear (principal); I10 Essential (primary) hypertension; F17.210 Nicotine dependence, cigarettes, uncomplicated; Z79.899 Other long term (current) drug therapy
CPT/HCPCS: 99282